=== PATIENT | female | born 1945 | race Caucasian/White ===

== ENCOUNTER 2017-06-16 13:33 | Inpatient (IN) | payer OTHER, MEDICARE ==
[~2017-06-16] VITALS: Ht 162.6 cm; Wt 71.2 kg
[~2017-06-16 13:33] MED LIST: CITALOPRAM HBR10 MG PO; HYDROCHLOROTHIA25 M1 PO; METOPROLOL SUCC25 M1 PO; METOPROLOL SUCC50 M2 PO; walker
--- NOTE | 2017-06-16 13:56 | ED NECK/BACK PAIN COMPLAINT ---
History of Present Illness General Chief Complaint: Low Back Pain/Injury Stated Complaint: LOW BACK PAIN, SEEN AND DC THS OTHER SAME FOR SAME Source: patient, old records, EMS Exam Limitations: no limitations Vital Signs & Intake/Output Vital Signs & Intake/Output Vital Signs Date Time Temp Pulse Resp B/P B/P Pulse O2 O2 Flow FiO2 Mean Ox Delivery Rate 06/16 1758 98.2 76 18 164/62 98 Room Air 06/16 1407 98.6 82 18 164/73 95 Room Air 06/16 1347 98.0 16 202/78 Allergies Coded Allergies: Penicillins (HIVES 06/13/17) Reconcile Medications Citalopram Hydrobromide (Citalopram HBr) 10 MG TABLET 1 TAB PO DAILY DEPESSION (Reported) Hydrochlorothiazide 25 MG TABLET 1 TAB PO DAILY HTN (Reported) Metoprolol Succinate 50 MG TAB.ER.24H 1 TAB PO DAILY HTN (Reported) Metoprolol Succinate 25 MG TAB 1 TAB PO DAILY HTN (Reported) Triage Note: 71 YO FEMALE ALTAF FROM HOME. PT SUSTAINED A FALL A COUPLE DAYS AGO AND WAS SEEN AT [facility] AND HAD XRAYS AND WAS D/C HOME. PT STATES HER LOW BACK HAS BEEN GETTING PROGRESSIVLEY WORSE. NOTED WITH BRUSING TO R ELBOW, STATES BRUISE WAS FROM THE PREVIOUS FALL. PT ALSO C/O PAIN TO R LEG AND BOTTOCKS. PT RECIEVED 75 MCG FENTANYL EN ROUTE TO ER BY [facility]. Triage Nurses Notes Reviewed? yes Onset: Gradual Duration: day(s): Timing: recent history Quality/Severity: severe Context: fall/near fall Method of Injury: fall Loss of Consciousness: no loss of consciousness Modifying Factors: movement HPI: 71yo female with hx of HTN BIBA c/o back pain, bilateral hip pain worsening this morning. Patient was seen and evaluated here in the ED on 06/12/17 after a fall at home. Patient had normal x-rays at, she was seen and evaluated by physical therapy, she was walking with a walker and was sent home with home health aide including visiting RN and PT. Patient states that she is been managing well at home, walking with a walker the past few days however this morning she had severe pain in her back and hips. Patient was unable to walk or move due to this pain and had to call for an ambulance. Patient medicated with 75 mcg fentanyl in route to the hospital for her pain, she reports improvement in pain following this medication. Patient denies urinary incontinence, urinary density , numbness, tingling, abdominal pain, chest pain, dyspnea. (Criss Slaughter) Past History Travel History Traveled to [place] past 21 day No Medical History Any Pertinent Medical History? see below for history Neurological: NONE EENT: NONE Cardiovascular: hypertension Respiratory: NONE Gastrointestinal: NONE Hepatic: NONE Renal: NONE Musculoskeletal: NONE Psychiatric: depression Endocrine: NONE Blood Disorders: NONE Cancer(s): NONE ADMISSIONS COUNSELOR/Reproductive: NONE Surgical History Surgical History: non-contributory Psychosocial History What is your primary language B[place]an Tobacco Use: Never used Family History Hx Contributory? No (Criss Slaughter) Review of Systems Review of Systems Constitutional: Reports: no symptoms. Eyes: Reports: no symptoms. Ears, Nose, Throat, Mouth: Reports: no symptoms. Respiratory: Reports: no symptoms. Cardiovascular: Reports: no symptoms. Gastrointestinal/Abdominal: Reports: no symptoms. Musculoskeletal: Reports: see HPI. Skin: Reports: no symptoms. Neurological/Psychological: Reports: no symptoms. All Other Systems: Reviewed and Negative (Criss Slaughter) Physical Exam Physical Exam General Appearance: well developed/nourished, no apparent distress, alert, awake Head: atraumatic, normal appearance Eyes: Bilateral: normal appearance. Ears, Nose, Throat, Mouth: hearing grossly normal Neck: normal inspection, supple, full range of motion, no midline tenderness Respiratory: normal breath sounds, no respiratory distress, lungs clear Cardiovascular: regular rate/rhythm Gastrointestinal: normal bowel sounds, soft, non-tender, no organomegaly Back: normal inspection, normal range of motion, no vertebral tenderness, no step offs Extremities: non-tender, normal range of motion, hips are nontender, limited ROM at hips bilaterally d/t pain Neurologic/Psych: awake, alert, oriented x 3 Skin: intact, normal color, warm/dry Core Measures CVA/TIA Diagnosis: No (Criss Slaughter) Progress Differential Diagnosis: aortic dissection, C spine injury, cauda equina syn, herniated disc, myofascial strain, sciatica, spinal cord inj, T/L spine injury, pelvis injury Plan of Care: Orders Procedure Date/time Status Heart Healthy Diet 06/17 B Active Patient Data 01/01 1848 Active ED Holding Orders 06/16 1834 Active Admit to inpatient 06/16 1834 Active Vital Signs 06/16 1834 Active Code Status 06/16 1834 Active COMPREHENSIVE METABOLIC PANEL 06/16 171 Complete CBC WITHOUT DIFFERENTIAL 06/16 1715 Complete Laboratory Tests 06/16/17 1726: Anion Gap 13, Estimated GFR > 60, BUN/Creatinine Ratio 36.0 H, Glucose 116 H, Calcium 9.3, Total Bilirubin 2.1 H, AST 27, ALT 30, Alkaline Phosphatase 53, Total Protein 7.1, Albumin 3.9, Globulin 3.2, Albumin/Globulin Ratio 1.2, CBC w Diff NO MAN DIFF REQ, RBC 4.78, MCV 94.4, MCH 32.4 H, RDW 13.3, MPV 9.1, Gran % 79.3 H, Lymphocytes % 9.6 L, Monocytes % 9.9 H, Eosinophils % 0.8, Basophils % 0.4, Absolute Granulocytes 8.8 H, Absolute Lymphocytes 1.1 L, Absolute Monocytes 1.1 H, Absolute Eosinophils 0.1, Absolute Basophils 0, PUBS MCHC 34.[address] Pinon REGARDING this patient's CAT scan findings - fractures are nonsurgical, patient will need repeat pelvic x-rays here in the office or in rehabilitation to assess for healing. Given patient's pain level agent would be a good candidate for rehabilitation. Not unusual to have worsening pain days later. Discussed possibility of rehabilitation with this patient, she feels unsafe going home and would like to go to rehabilitation for more assistance and physical therapy. The patient was discussed with No from case management, patient requires 3 night stay based on her insurance. This patient was discussed with hospitalist, ,regarding her general medicine admission for multiple fractures and rehabilitation placement. Diagnostic Imaging: Viewed by Me: CT Scan. Discussed w/RAD: CT Scan. Radiology Impression: PATIENT: ODALYS GOMEZ PRESENT AGE: 71 PATIENT ACCOUNT NO: [id number] : 46 LOCATION: [facility] ORDERING PHYSICIAN: Criss LAMA SERVICE DATE: 06/16/17-6166 EXAM TYPE: CAT - CT PELVIS WO IV CONTRAST EXAMINATION: CT PELVIS WITHOUT CONTRAST CLINICAL INFORMATION: Low back and bilateral hip pain status post fall. Evaluate for fracture, malalignment, hip fracture. COMPARISON: None. TECHNIQUE: Helical scanning was performed with submillimeter collimation through the pelvis. Sagittal and coronal multiplanar 2-D reconstructions were obtained. DLP: 859.60 mGy-cm FINDINGS: PELVIS: There is no pelvic mass. OSSEOUS STRUCTURES: There is a minimally distracted fracture of the left L5 transverse process. There is a nondisplaced left sacral fracture. Buckling of the anterior cortex of the right sacrum raises the possibility of a subtle fracture as well. There is a nondisplaced, mildly comminuted fracture of the left proximal superior ischiopubic ramus. There is a comminuted, mildly displaced fracture of the left inferior ischiopubic ramus. There is a sideplate, multiple screws, and a transcervical compression hip screw transfixing the right proximal femur. There is moderate hypertrophic change. No fractures identified. There are mild degenerative changes of the left hip with no fracture identified. IMPRESSION: 1. Minimally distracted fracture of the left L5 transverse process. Nondisplaced left sacral fracture. Possible subtle fracture of the right anterior sacrum. Nondisplaced, mildly comminuted fracture of the left superior ischiopubic ramus. Comminuted, mildly displaced fracture of the left inferior ischiopubic ramus. 2. No evidence of hip fracture. DICTATED BY: Malcolm Dickerson MD DATE/TIME DICTATED :06/16/171540 CV TECH:SAM DATE/TIME TRANSCRIBED:06/16/171540 CONFIDENTIAL, DO NOT COPY WITHOUT APPROPRIATE AUTHORIZATION. < Electronically signed in Other Vendor System> SIGNED BY: Malcolm Dickerson MD 06/16/17 1623, PATIENT: ODALYS GOMEZ PRESENT AGE: 71 PATIENT ACCOUNT NO: [id number] : 46 LOCATION: [facility] ORDERING PHYSICIAN: Criss LAMA SERVICE DATE: 06/16/173 EXAM TYPE: CAT - CT LUMB SPINE WO IV CONTRAST EXAMINATION: CT LUMBAR SPINE WITHOUT CONTRAST CLINICAL INFORMATION: Fall few days ago. COMPARISON: Concurrently performed pelvic CT and pelvic radiograph 06/12/2017. TECHNIQUE: Helical non-contrast CT images were obtained through the lumbar spine and 1.25 and 2.5 mm axial reconstructions were reviewed along with sagittal and coronal MPRs. DLP: 480 mGy -cm FINDINGS: There is a mildly displaced comminuted fracture through the left L5 transverse process. No other lumbar spine fracture is seen. There are minimally displaced fractures through the left and right sacral ala. The lumbar vertebral bodies maintain normal heights and alignment. No compression fracture is seen. There is intervertebral disc height loss at L3-L4 and L4-L5. There is multilevel degenerative endplate spurring. Facet arthropathy is present at multiple levels but appears most advanced at L4-L5 and L5-S1. No moderate or severe spinal canal or neural foraminal stenosis is seen. There are atheromatous changes in the abdominal aorta and its branches. The visualized intra-abdominal and pelvic structures are within normal limits. No retroperitoneal hematoma is seen. IMPRESSION: 1. Mildly displaced fracture through the left L5 transverse process. No other lumbar spine fracture is seen. Specifically, there is no compression fracture or traumatic malalignment. 2. Partially visualized fractures through the left and right sacral ala. See concurrently performed pelvic CT for further discussion of pelvic fractures including the left superior and inferior pubic rami and fracture involving the left acetabulum. 3. Multilevel degenerative changes in the lumbar spine without significant spinal canal or neural foraminal stenosis. This critical result was discussed with Juliette Brooks at 3:42 PM on 06/16/2017 and it was ascertained that the content and urgency of the report was understood at the time of direct communication. DICTATED BY: Felton Barber MD DATE/TIME DICTATED:06/16/171527 CV TECH:SAM DATE/TIME TRANSCRIBED:06/16/171527 CONFIDENTIAL, DO NOT COPY WITHOUT APPROPRIATE AUTHORIZATION. <Electronically signed in Other Vendor System> SIGNED BY: Felton Barber MD 06/16/17 1601 (Cecilia LAMA,Criss Segovia) Departure Departure Disposition: STILL A PATIENT Condition: Stable Clinical Impression Primary Impression: Fracture of transverse process of lumbar vertebra Qualifiers: Encounter type: subsequent encounter Fracture type: closed Secondary Impressions: Pubic ramus fracture Qualifiers: Encounter type: subsequent encounter Fracture type: closed Laterality: left Sacral fracture, closed Qualifiers: Encounter type: subsequent encounter Zone of sacrum fracture: unspecified portion of sacrum Referrals: Yasmin GORMAN,Bo Conrad (PCP/Family) Departure Forms: Customer Survey General Discharge Information Admission Note Spoke With: Josue MD,Sitalakshmi Documentation of Exam: Documentation of any treatments & extenuating circumstances including Concerns Regarding Discharge (functional status, medication knowledge or non-compliance, living conditions, etc.) that warrant an admission rather than observation: [ Patient with multiple fractures including transverse fracture of lumbar spine, sacral fractures, pubic rami fractures. This patient is in significant pain, requires pain management, physical therapy consult, case management consult, rehabilitation placement. Patient is unable to carry out ADLs at home, premature discharge would be unsafe.] (Cecilia LAMA,Criss Segovia) PA/BARREL LATHE OPERATOR Co-Sign Statement Statement: ED Attending supervision documentation- [X] I saw and evaluated the patient. I have also reviewed all the pertinent lab results and diagnostic results. I agree with the findings and the plan of care as documented in the PA's/BARREL LATHE OPERATOR's documentation. [X] I have reviewed the ED Record and agree with the PA's/BARREL LATHE OPERATOR's documentation. [] Additions or exceptions (if any) to the PAs/BARREL LATHE OPERATOR's note and plan are summarized below: [ADMIT FOR PAIN CONTROL, PT EVAL AND TREATMENT AND MOST LIKELY STR.] (Kathy GORMAN,Rakesh Mendiola)
--- NOTE | 2017-06-16 16:04 | CT SCAN REPORT ---
EXAMINATION: CT LUMBAR SPINE WITHOUT CONTRAST CLINICAL INFORMATION: Fall few days ago. COMPARISON: Concurrently performed pelvic CT and pelvic radiograph 06/12/2017. TECHNIQUE: Helical non-contrast CT images were obtained through the lumbar spine and 1.25 and 2.5 mm axial reconstructions were reviewed along with sagittal and coronal MPRs. DLP: 480 mGy-cm FINDINGS: There is a mildly displaced comminuted fracture through the left L5 transverse process. No other lumbar spine fracture is seen. There are minimally displaced fractures through the left and right sacral ala. The lumbar vertebral bodies maintain normal heights and alignment. No compression fracture is seen. There is intervertebral disc height loss at L3-L4 and L4-L5. There is multilevel degenerative endplate spurring. Facet arthropathy is present at multiple levels but appears most advanced at L4-L5 and L5-S1. No moderate or severe spinal canal or neural foraminal stenosis is seen. There are atheromatous changes in the abdominal aorta and its branches. The visualized intra-abdominal and pelvic structures are within normal limits. No retroperitoneal hematoma is seen. IMPRESSION: 1. Mildly displaced fracture through the left L5 transverse process. No other lumbar spine fracture is seen. Specifically, there is no compression fracture or traumatic malalignment. 2. Partially visualized fractures through the left and right sacral ala. See concurrently performed pelvic CT for further discussion of pelvic fractures including the left superior and inferior pubic rami and fracture involving the left acetabulum. 3. Multilevel degenerative changes in the lumbar spine without significant spinal canal or neural foraminal stenosis. This critical result was discussed with Juliette Brooks at 3:42 PM on 06/16/2017 and it was ascertained that the content and urgency of the report was understood at the time of direct communication.
--- NOTE | 2017-06-16 16:23 | CT SCAN REPORT ---
EXAMINATION: CT PELVIS WITHOUT CONTRAST CLINICAL INFORMATION: Low back and bilateral hip pain status post fall. Evaluate for fracture, malalignment, hip fracture. COMPARISON: None. TECHNIQUE: Helical scanning was performed with submillimeter collimation through the pelvis. Sagittal and coronal multiplanar 2-D reconstructions were obtained. DLP: 859.60 mGy-cm FINDINGS: PELVIS: There is no pelvic mass. OSSEOUS STRUCTURES: There is a minimally distracted fracture of the left L5 transverse process. There is a nondisplaced left sacral fracture. Buckling of the anterior cortex of the right sacrum raises the possibility of a subtle fracture as well. There is a nondisplaced, mildly comminuted fracture of the left proximal superior ischiopubic ramus. There is a comminuted, mildly displaced fracture of the left inferior ischiopubic ramus. There is a sideplate, multiple screws, and a transcervical compression hip screw transfixing the right proximal femur. There is moderate hypertrophic change. No fractures identified. There are mild degenerative changes of the left hip with no fracture identified. IMPRESSION: 1. Minimally distracted fracture of the left L5 transverse process. Nondisplaced left sacral fracture. Possible subtle fracture of the right anterior sacrum. Nondisplaced, mildly comminuted fracture of the left superior ischiopubic ramus. Comminuted, mildly displaced fracture of the left inferior ischiopubic ramus. 2. No evidence of hip fracture.
[2017-06-16 17:46] LABS: ABSOLUTE BASOPHIL COUNT 0 /CUMM (0.0-0.2); ABSOLUTE EOSINOPHIL COUNT 0.1 /CUMM (0.0-0.7); ABSOLUTE GRANULOCYTE CT 8.8 /CUMM (1.4-6.5); ABSOLUTE LYMPH COUNT 1.1 /CUMM (1.2-3.4); ABSOLUTE MONOCYTE COUNT 1.1 /CUMM (0.10-0.60); BASOPHIL % 0.4 % (0.0-2.0); EOSINOPHIL % 0.8 % (0-5); GRANULOCYTE % 79.3 % (42.2-75.2); HEMATOCRIT 45.1 % (37-47); MEAN CORPUSCULAR HGB 32.4 PG (27.0-31.0); MEAN CORPUSCULAR HGB CONC 34.4 G/DL (33.0-37.0); MEAN CORPUSCULAR VOLUME 94.4 FL (81.0-99.0); MEAN PLATELET VOLUME 9.1 FL (7.4-10.4); PLATELET COUNT 206 /CUMM (130-400); RBC DISTRIBUTION WIDTH 13.3 % (11.5-14.5); RED BLOOD CELL CT 4.78 /CUMM (4.20-5.40); WHITE BLOOD CELL COUNT 11.1 /CUMM (4.8-10.8)
--- NOTE | 2017-06-16 20:00 | History & Physical ---
Martha Narayan MD 06/16/171958: General Information and [facility] MD Statement: I have seen and personally examined ODALYS VALENTIN and documented this H&P. The patient is a 71 year old F who presented with a patient stated chief complaint of [right leg pain]. Source of Information: patient Exam Limitations: no limitations History of Present Illness: This is a 71-year-old female with past medical history of hypertension, depression came to [place] [facility] with history of pain and difficulty upon walking more on the right side compared to left. Apparently patient had a fall 3 days [ under the influence of alcohol, patient was lying in her couch and rolled on the floor with no episode of loss of consciousness/accident/seizures] ago and came to [place] ER-evaluated with x-r and found to have no fracture. She was sent back home with follow-up with her primary care physician. Patient since then was using walker at home. Patient was apparently normal until yesterday, following which she started developing severe 10 x 10 constant excruciating pain in her lower back, buttock, right leg more than the left leg since today morning. Patient was able to ambulate with the help of the walker but with pain. She was brought to [facility] for further evaluation and management. She denies chest pain, chest pressure, alcohol use in the past 3 days, abdominal pain, abdominal cramps, left arm pain, jaw pain, palpitation hematuria, dysuria, constipation, diarrhea, fever, chills, nausea, vomiting, loss of consciousness, seizures, blackouts, ringing of year, headache. Pt feels depressed and embarressed about her recent alcohol use and fall due to the same. She also feels unsafe being at home alone as her son who lives upstairs goes to job from tomorrow. Allergies/Medications Allergies: Coded Allergies: Penicillins (HIVES 06/13/17) Home Med list Citalopram Hydrobromide (Citalopram HBr) 10 MG TABLET 1 TAB PO DAILY DEPESSION (Reported) Hydrochlorothiazide 25 MG TABLET 1 TAB PO DAILY HTN (Reported) Metoprolol Succinate 50 MG TAB.ER.24H 1 TAB PO DAILY HTN (Reported) Compliance With Home Meds: GOOD Past History Travel History Traveled to [place] past 21 day No Medical History Neurological: NONE EENT: NONE Cardiovascular: hypertension Respiratory: NONE Gastrointestinal: NONE Hepatic: NONE Renal: NONE Musculoskeletal: NONE Psychiatric: depression Endocrine: NONE Blood Disorders: NONE Cancer(s): NONE DIRECTOR OF PAYROLL/Reproductive: NONE Surgical History Surgical History: fracture right femur Past Family/Social History Family History Relations & Conditions if any FATHER Relation not specified for: FHx: lung cancer Psychosocial History Where do you live? Home Who Do You Live With? spouse Services at Home: None Primary Language: Icelandic Smoking Status: Never Smoked ETOH Use: heavy use Illicit Drug Use: denies illicit drug use Functional Ability ADLs Independent: dressing, eating, toileting, bathing. Ambulation: walker IADLs Independent: shopping, housework, finances, food prep, telephone, transportation , medication admin. Review of Systems Review of Systems Constitutional: Reports: no symptoms. Cardiovascular: Denies: no symptoms. Respiratory: Denies: no symptoms. GI: Reports: no symptoms. Genitourinary: Reports: no symptoms. Neurological/Psychological: Reports: no symptoms. Hematologic/Endocrine: Reports: no symptoms. Exam & Diagnostic Data Last 24 Hrs of Vital Signs/I&O Vital Signs Date Time Temp Pulse Resp B/P B/P Pulse O2 O2 Flow FiO2 Mean Ox Delivery Rate 06/16 2200 98.9 78 18 142/62 06/16 2100 98.9 78 18 142/62 95 Room Air 06/16 1938 98.3 78 18 167/72 97 Room Air Room Air 06/16 1758 98.2 76 18 164/62 98 Room Air 06/16 1407 98.6 82 18 164/73 95 Room Air 06/16 1347 98.0 16 202/78 Intake & Output 06/17 0800 06/17 0000 06/16 1600 Intake Total 240 0 Output Total 0 Balance 240 0 Intake, Oral 240 0 Number 0 Bowel Movements Output, Urine 0 Patient 157 lb 157 lb Weight Weight Reported by Patient Reported by Patient Measurement Method Physical Exam General Appearance Alert, Oriented X3, Cooperative, No Acute Distress Skin No Rashes, No Breakdown HEENT Atraumatic, PERRLA Cardiovascular Regular Rate, Normal S1, Normal S2, No Murmurs Lungs Clear to Auscultation Abdomen Normal Bowel Sounds, Soft, No Tenderness Neurological Normal Speech, Strength at 5/5 X4 Ext, Normal Tone, Sensation Intact Extremities No Edema, no point tenderness,restricted hip extension b/l Vascular Normal Pulses Last 24 Hrs of Labs/Ayden: Laboratory Tests 06/16/17 1726: Anion Gap 13, Estimated GFR > 60, BUN/Creatinine Ratio 36.0 H, Glucose 116 H, Calcium 9.3, Total Bilirubin 2.1 H, Direct Bilirubin 0.7 H, AST 27, ALT 30, Alkaline Phosphatase 53, Total Protein 7.1, Albumin 3.9, Globulin 3.2, Albumin/ Globulin Ratio 1.2, Vitamin B12 329, 25-OH Vitamin D Total 5.0 L, CBC w Diff NO MAN DIFF REQ, RBC 4.78, MCV 94.4, MCH 32.4 H, RDW 13.3, MPV 9.1, Gran % 79.3 H , Lymphocytes % 9.6 L, Monocytes % 9.9 H, Eosinophils % 0.8, Basophils % 0.4, Absolute Granulocytes 8.8 H, Absolute Lymphocytes 1.1 L, Absolute Monocytes 1.1 H, Absolute Eosinophils 0.1, Absolute Basophils 0, PUBS MCHC 34.4 Diagnostic Data EKG Results normal axis,SR ,[id number] Other Results lumbar spine CT IMPRESSION: 1. Mildly displaced fracture through the left L5 transverse process. No other lumbar spine fracture is seen. Specifically, there is no compression fracture or traumatic malalignment. pelvis CT 1. Minimally distracted fracture of the left L5 transverse process. Nondisplaced left sacral fracture. Possible subtle fracture of the right anterior sacrum. Nondisplaced, mildly comminuted fracture of the left superior ischiopubic ramus. Comminuted, mildly displaced fracture of the left inferior ischiopubic ramus. 2. No evidence of hip fracture. 2. Partially visualized fractures through the left and right sacral ala. Assessment/Plan Assessment: This is a 71-year-old female with past medical history of hypertension, depression came to [place] [facility] with history of pain and difficulty upon walking more on the right side compared to left, Found to have minimally distracted fracture of left L5 transverse process, subtle fracture of right anterior sacrum , mildly comminuted fracture of the left superior ischiopubic Ramus, mildly displaced fracture of the left inferior ischiopubic Ramus. Admission vitals Blood pressure 202/78 came down to 142/62, temperature 98.3, pulse rate 78, respiratory rate 18, saturation 97. Admission labs WBC 11.1, hemoglobin 15.5, sodium 141, potassium 3.8, BUN/creatinine 18, calcium 9.3, creatinine 0.5, total bilirubin 2.1. Problem list 1. Lumbar L5 fracture, Left superior and inferior is ischio pubic ramus fracture, fracture of right anterior sacrum. 2. Hypertension 3. Depression 4. Vit D deficiency 5. Excessive alcohol intake Assessment and plan 1. Lumbar L5 fracture, Left superior and inferior is ischio pubic ramus fracture, fracture of right anterior sacrum-patient will be managed conservatively. We will get a PT OT consult in a.m. We will discuss with case management regarding placement to STR. Pain management-morphine, oxycodone, lidocaine 5% patch, Tylenol. 2.Hypertension We will continue her metoprolol 50 mg daily hydrochlorthiazide 25 mg daily. 3. Depression We will continue her citalopram 10 mg daily. Patient would like to talk to psychiatry. We will get a psychiatry consult in a.m. 4. Excessive alcohol intake We will send urine and serum alcohol level.[facility] protocol. 5. Vit D Pt Vit D is low 5[place] [id number] weekly vit D injection and do bone scan as out pt. Code-full code Diet-regular diet DVT prophylaxis-subcutaneous heparin. As Ranked By This Provider Problem List: 1. Fracture of transverse process of lumbar vertebra Qualifiers Encounter type: subsequent encounter Fracture type: closed 2. Pubic ramus fracture Qualifiers Encounter type: subsequent encounter Fracture type: closed Laterality: left 3. Sacral fracture, closed Qualifiers Encounter type: subsequent encounter Zone of sacrum fracture: unspecified portion of sacrum Core Measures/Misc (03/02) Acute Coronary Syndrome ACS Diagnosis: No Congestive Heart Failure Congestive Heart Failure Diagnosis No Cerebrovascular Accident CVA/TIA Diagnosis: No VTE (View Protocol) VTE Risk Factors Age>40 No Mechanical VTE Prophylaxis d/t Other No VTE Pharm Prophylaxis d/t Other Sepsis (View protocol) Sepsis Present: No Varinder Pedroza 06/17/17 0304: Resident Review Statement Resident Statement: examined this patient, discussed with international manager, agreed with international manager, reviewed images, amended to note Other Findings: Ms Valentin is a 71 year old woman w/ a PMHx HTN, Depression presented to the [place] ER w/ a chief concern of inability to get out of her bed. She was evalated in the ED on 05/14/17, when she had a mechanical fall after she tripped when she was getting out of her couch. She was intoxicated at that time, and had a several x rays including L elbow, pelvis, chest that did not reveal any acute fractures at that time. She was discharged home, and did not have any further falls. She returned to the ER w/ a cheif concern of inability to get out of her bed due to sever pain in her hip region radiating to the back of the legs. She did not have any fever, urinary or bowel incontinence. No report of neurological weakness, paresthesias, or any discoloration of lower extremities. She was very concerned about her worsening pain, and also her living condition especially with her daily chores including food preparation. Also, upon questioning she reported frequent alcohol use, 2-3 glasses of wine almost every day. Last drink 4 days ago. She reports no history of alcohol withdrawl seizures, DTs. She also reported feeling a little low in mood, secondary to being in pain, but did not have any SI/HI. She did not have any previous bone density scanning done, nor was tx'ed w/ vitamin D or calcium supplementations. No recent or medical terminologist corticosteroid use. At the time of admission, vitals temp 98, DE 82, RR 18, BP 164/73, 95 RA. On examination, she was comfortably lying in her bed, but she was in a lot of pain, when examined. She had tenderness in her lower back, and right femur region. She had bruise in right elbow joint region, but no joint tenderness. No knee or ankle tenderness. Neurological examinatoin was non focal. Gait could not be checked. Heart and lung exam was normal. Pertinent lab findings: WBC 11.1, Hb 15.1, platelets 206, electrolytes-sodium 141, potassium 3.8, renal function BUN 18, creatinine 0.5, total bilirubin 2.1, direct bilirubin 0.7 (likely a conjugating defect), liver chemistries-AST 27, ALT 30, alkaline phosphatase 53. CT pelvis and lumbar spine revealed mildly displaced fracture through left L5 transverse process. No compression fracture was noted. Also fractures of nondisplaced left sacral fracture, fracture of right anterior sacrum, nondisplaced mildly comminuted fracture of left superior ischiopubic ramus, and inferior ischiopubic ramus. No evidence of a fracture. Fall resulting in fracture of sacrum, that is less than standing length is likely from osteoporosis, but a bone density evaluation or a diagnosis is not available at this time. She has low vitamin D, and a possible nutritional deficiency from chronic alcohol use, which would put her at a risk of frequent fractures. She would need a dedicated rehabilitation program, and a follow-up with primary care physician to evaluate bone health, if she would need any bisphosphonates. In regards to her abnormal lab findings, slightly elevated indirect bilirubin is likely from her ? Conjugating defect or biliary stasis. This could be followed up over time, until normalization. Plan: #1 multiple falls resulting in fracture- she would need a dedicated STIR with physical therapy. As per the orthopedic recommendation (discussed with emergency room physician), management plan is largely conservative. She would require follow-up x-rays for evaluation of healing in the future. Fall precautions. Check vitamin B-12, if low will replenish; if borderline check MMA. #2 pain management-with Lidoderm patch, oxycodone, intravenous morphine. Hold for sedation. Bowel regimen. #3 mental health, social issues- she would need a psychiatry evaluation, and a social work evaluation, as she expressed issues of security at home. Housekeeping: #1 DVT prophylaxis-subcutaneous heparin #2 diet-heart healthy diet #3 Full code. Josue GORMAN, [facility] 06/17/17 0315: Attending MD Review Statement Attending Statement Attending MD Statement: examined this patient, discuss w/resident/PA/HOSPICE/HOME HEALTH AIDE, agreed w/resident/PA/HOSPICE/HOME HEALTH AIDE, reviewed images, amended to note Attending Assessment/Plan: 71 yo F with h/o HTN, depression and alcohol use, was seen in ER on Jun 12 after suffering 2 falls at home under the influence of alcohol, imaging was negative for any fracture, patient was sent home with a rolling walker with PT services after being evaluated by PT and case management. She returns today for c/o back pain and bilateral hip pain that limiting her mobility. She called 911, was given fentanyl enroute with some relief. At baseline, she walks independently without a walker or cane. About her alcohol use, she reports drinking 2 glasses of wine every other day, but is not really dependent on it and has never needed to be detoxed. She lives alone, while her son lives with his girlfriend upstairs. She seems to be depressed and reports 'feeling unsafe' as her son has starts to work again. She is also embarrassed about her recent alcohol use. She states, 'I feel safe here'. Vitals are stable except for hypertension on ER arrival which was possibly pain induced, BP 142/62 now. Exam: AAO, in mild distress due to pain, limited neuro exam appears nonfocal, bilateral hips limited ROM due to pain. Left elbow skin tear healing with diffuse ecchymosis, no limitation in ROM. Labs: WBC 11.1, BUN 18, glucose 116, T. Bili 2.1, AST/ ALT normal, alcohol <10. CT lumbar spine: mildly displaced fracture left L5 transverse process, no compression fracture. CT pelvis: minimally distracted fracture of left L5 transverse process, nondisplaced left sacral fracture, possible subtle fracture of right anterior sacrum, nondisplaced, mildly comminuted fracture of left superior ischiopubic ramus, comminuted mildly displaced fraccture of left inferior ischiopubic ramus, no hip fracture. Assessment and plan: 1. Recent mechanical fall 2. Multiple pelvic fractures with left L5 transverse fracture 3. Gait instability 4. Depression - Admit to general medicine - Fall precautions - CIWA protocol - Pain management with lidoderm patch, IV tylenol, PO percocet and IV morphine PRN - Ortho consult ER discussed with Dr. Pinon, fractures are nonsurgical - Check vit D and B12 levels - PT eval and STR placement - Case management consult - Psych and social work consult assess safety - Continue home meds citalopram, metoprolol and HCTZ DVT ppx Lovenox. Full code. - PT eval and STR placement - Case management consult - Psych and social work consult assess safety - Continue home meds citalopram, metoprolol and HCTZ DVT ppx Lovenox. Full code.
--- NOTE | 2017-06-16 20:56 | Admission Certification ---
Admission Certification Certification Statement - As attending physician, I certify that at the time of - admission, based on clinical presentation, severity of - symptoms, need for further diagnostic testing and - therapeutic interventions, and risk of adverse outcomes - without in-hospital treatment, in my clinical assessment, - this patient requires an acute hospital stay for a minimum - of two nights or longer. I have also considered psychsocial - factors such as support system, advanced age, financial - issues, cognitive issues, and failed out-patient treatments, - past re-admission history, safety of patient, and lack of - compliance as applicable. Specific rationale supporting this admission is: Fall, pelvic fracture, needs pain management, PT and STR.
[2017-06-16 21:00] VITALS: BP 142/62
[2017-06-16 22:00] VITALS: BP 142/62
[2017-06-17] VITALS (11 sets, daily range): BP systolic 142–190; BP diastolic 62–76
--- NOTE | 2017-06-17 09:11 | PN- Housestaff ---
Kareen GORMAN,Bri 06/17/17 0911: Subjective Follow-up For: 1. Lumbar L5 fracture, Left superior and inferior is ischio pubic ramus fracture, fracture of right anterior sacrum. 2. Hypertension 3. Depression 4. Vit D deficiency 5. Excessive alcohol intake Complaints: pain scale (0-10) Subjective: Patient is seen and examined at bedside, she continues to complain of pain in her back and posterior part of her thighs 5/10 in severity which is somewhat controlled by pain meds, she also complains of depressed mood, she denies nausea vomiting, abdominal pain, chest pain, diarrhea or constipation. Review of Systems Constitutional: Denies: no symptoms. Cardiovascular: Denies: no symptoms. Respiratory: Denies: no symptoms. Gastrointestinal: Denies: no symptoms. Musculoskeletal: Reports: back pain, joint pain, muscle pain. Objective Last 24 Hrs of Vital Signs/I&O Vital Signs Date Time Temp Pulse Resp B/P B/P Pulse O2 O2 Flow FiO2 Mean Ox Delivery Rate 06/17 1000 170/72 06/17 1000 170/76 06/17 0800 190/70 06/17 0725 190/70 06/17 0602 70 178/68 06/17 0600 98.4 70 20 178/68 06/17 0530 98.4 70 20 178/68 93 Room Air 06/17 0400 98.5 80 20 172/68 06/17 0200 98.5 80 20 172/68 06/17 0128 98.5 80 20 172/68 94 / 0000 98.9 78 18 142/62 06/16 2200 98.9 78 18 142/62 06/16 2100 98.9 78 18 142/62 95 Room Air 06/16 1938 98.3 78 18 167/72 97 Room Air Room Air 06/16 1758 98.2 76 18 164/62 98 Room Air Intake & Output 06/17 1600 06/17 0800 06/17 0000 Intake Total 800 490 240 Output Total 400 0 Balance 400 490 240 Intake, IV 0 10 Intake, Oral 800 480 240 Number 0 0 0 Bowel Movements Output, Urine 400 0 Patient 157 lb Weight Weight Reported by Patient Measurement Method Physical Exam General Appearance: Alert, Oriented X3, Cooperative, No Acute Distress HEENT: Atraumatic, PERRLA, EOMI, Mucous Membr. moist/pink Neck: Supple, No JVD Cardiovascular: Normal S1, Normal S2, No Murmurs Lungs: Clear to Auscultation, Normal Air Movement Abdomen: Normal Bowel Sounds, Soft, No Tenderness Neurological: Normal Speech, Strength at 5/5 X4 Ext, Normal Tone Extremities: No Clubbing, No Cyanosis, No Edema, Normal Pulses Vascular: Normal Pulses Assessment/Plan Assessment: 79 years old female with past medical history of hypertension, depression who presented to [place] [facility] was history of pain and difficulty walking which is more noticed on the right side, CT pelvis and lumbar spines show with minimally displaced fracture of L5 transverse process, fracture of the right anterior sacrum ramus,subtle fracture of right anterior sacrum, mildly comminuted fracture of the left superior ischiopubic Ramus, mildly displaced fracture of the left inferior ischiopubic Ramus, this morning the patient was found to have hyper pressure of 190/70 which might be attributed to her pain #L5 fracture, Left superior and inferior is ischio pubic ramus fracture, fracture of right anterior sacrum: -Pain management with morphine, oxycodone, Tylenol, lidocaine patch -Oxycodone has been increased to 5 mg every 4 - ER discussed with Dr. Pinon, fractures are nonsurgical -Fall precautions -PT eval and STR placement #Depression/history of excessive alcohol use: CIWA score Continue citalopram 10 mg PO daily. refer to PCP after discharge for anxiety and possible depression #Vitamin D deficiency Patient was restarted on 50,000 vitamin D injection , will need bone scan as outpatient. Continue citalopram 10 mg PO daily. Problem List: 1. Pubic ramus fracture 2. Sacral fracture, closed 3. Fracture of transverse process of lumbar vertebra Pain Ratin Pain Location: back and buttocks Pain Goal: Pain 4 or less Pain Plan: per pathway Tomorrow's Labs & Rationales: cbc bep DVT/Prophylaxis: mechanical, pharmacological Aida Freeman MD 06/17/17 1510: Attending MD Review Statement Attending Statement Attending MD Statement: examined this patient, discuss w/resident/PA/DIRECTOR CARDIAC, agreed w/resident/PA/DIRECTOR CARDIAC, reviewed EMR data (avail) Attending Assessment/Plan: Mechanical fall with multiple pelvic and L5 transverse process fractures. Pain is improved today. Patient will be managed with pain control and physical therapy, eventual discharge to [facility], continue current management and home medications.
[2017-06-17 09:33] LABS: ABSOLUTE BASOPHIL COUNT 0.1 /CUMM (0.0-0.2); ABSOLUTE EOSINOPHIL COUNT 0.3 /CUMM (0.0-0.7); ABSOLUTE GRANULOCYTE CT 7.1 /CUMM (1.4-6.5); ABSOLUTE LYMPH COUNT 1.6 /CUMM (1.2-3.4); ABSOLUTE MONOCYTE COUNT 1.3 /CUMM (0.10-0.60); BASOPHIL % 0.5 % (0.0-2.0); EOSINOPHIL % 2.9 % (0-5); HEMATOCRIT 43.7 % (37-47); MEAN CORPUSCULAR HGB 32.4 PG (27.0-31.0); MEAN CORPUSCULAR HGB CONC 33.9 G/DL (33.0-37.0); MEAN CORPUSCULAR VOLUME 95.5 FL (81.0-99.0); MEAN PLATELET VOLUME 10.1 FL (7.4-10.4); RBC DISTRIBUTION WIDTH 13.2 % (11.5-14.5); RED BLOOD CELL CT 4.58 /CUMM (4.20-5.40)
--- NOTE | 2017-06-17 10:12 | Cons- Psychiatry ---
Psychiatric Consult Date of Consult: 06/17/17 Reason for Consult: "multiple falls, depression, alcohol use." History of Present Illness: 71 F ALTAF from home 06/16/17 @ 1347 with CC pain and bruising 2/2 falls. Allergies: Coded Allergies: Penicillins (HIVES 06/13/17) Current Medications: Current Medications Sig/Farooq Start time Last Medication Dose Stop Time Status Admin Acetaminophen 650 MG Q6PRN PRN 06/16 2045 AC (Tylenol) Citalopram 10 MG DAILY 06/17 1000 AC 06/17 Hydrobromide 0816 (Celexa) Docusate Sodium 100 MG DAILY 06/17 1000 AC 06/17 (Colace) 0815 Ergocalciferol 50,000 IU QTUES 06/17 0700 AC 06/17 (Drisdol) 08/05 0701 0539 Heparin Sodium 5,000 UNIT Q8 06/16 2200 AC 06/17 (Porcine) 0519 Hydrochlorothiazide 25 MG DAILY 06/17 1000 AC 06/17 (Hydrodiuril) 0815 Lidocaine 1 PAT Q24H 06/16 2045 AC 06/16 (Lidoderm) 2225 Metoprolol Tartrate 25 MG BID 06/17 2200 AC (Lopressor) Morphine Sulfate 2 MG Q6P PRN 06/16 2200 AC 06/17 (Morphine) 0519 Oxycodone HCl 5 MG Q4 HRS NEEDED PRN 06/17 0830 AC (Roxicodone) Polyethylene Glycol 17 GM AT BEDTIME 06/16 2200 AC (Miralax) Past History Past Medical History Neurological: NONE EENT: CATARACT SX Cardiovascular: hypertension Respiratory: NONE Gastrointestinal: NONE Hepatic: NONE Renal: NONE Musculoskeletal: FEMUR FRACTURE 1999 Psychiatric: depression Endocrine: NONE Blood Disorders: NONE Cancer(s): NONE 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 Bo Hoffman. Reason for Treatment Anxiety Dates of Treatment Current Response to Treatment Improved, per patient Diagnosis: Mood d/o NOS Alcohol use d/o Risk Factors: age (under 24/over 65) Substance Use/Abuse History Drug Use/Abuse Substances Used/Abused Yes Substance Used/Abused Alcohol First Use Not evaluated Last Used 07/14/26 How much used/taken 2-3 glasses of wine How often daily For how long fci Substance Abuse Treatment Substance Abuse Treatment Past Substance Abuse [place] No Comments: The patient reports that she does not feel she has a problem with alcohol. Assessment/Plan Mental Status Orientation: Person, Place, Situation Affect: Constricted Speech: WNL Neuro-vegetative: WNL Mental Status Exam: A+O X 4; denies AH or VH, and presents no mc delusions; Denies SI, HI or history of suicide attempts. She reports current depression 6-12/23, 03/25 worst, related to her embarrassment of being hospitalized for falls 2/2 her alcohol use. Denies hopelessness, helplessness; "Sometimes a little" worthlessness and endorses feelings of guilt 2/2 her feeling responsible for her sons drug addiction. She feels that after her divorce when her son was a child, she feels she made a choice to have a social life, and that she neglected her son, leading to his drug addiction. Lab Results: Laboratory Tests 06/17 06/17 06/16 0730 0730 1726 Chemistry Sodium (137 - 145 mmol/L) 139 141 Potassium (3.5 - 5.1 mmol/L) 3.7 3.8 Chloride (98 - 107 mmol/L) 102 102 Carbon Dioxide (22 - 30 mmol/L) 24 26 Anion Gap (5 - 16) 14 13 BUN (7 - 17 mg/dL) 18 H 18 H Creatinine (0.5 - 1.0 mg/dL) 0.5 0.5 Estimated GFR (>60 ml/min) > 60 > 60 BUN/Creatinine Ratio (7 - 25 %) 36.0 H 36.0 H Glucose (65 - 99 mg/dL) 116 H Calcium (8.4 - 10.2 mg/dL) 9.3 Total Bilirubin (0.2 - 1.3 mg/dL) 2.1 H Direct Bilirubin (< 0.4 mg/dL) 0.7 H AST (14 - 36 U/L) 27 ALT (9 - 52 U/L) 30 Alkaline Phosphatase (<127 U/L) 53 Total Protein (6.3 - 8.2 g/dL) 7.1 Albumin (3.5 - 5.0 g/dL) 3.9 Globulin (1.9 - 4.2 gm/dL) 3.2 Albumin/Globulin Ratio (1.1 - 2.2 %) 1.2 Vitamin B12 (239 - 931 pg/mL) 329 Methylmalonic Acid Pending 25-OH Vitamin D Total (30 - 100 ng/ml) 5.0 L Hematology CBC w Diff Pending NO MAN DIFF REQ WBC (4.8 - 10.8 /CUMM) Pending 11.1 H RBC (4.20 - 5.40 /CUMM) Pending 4.78 Hgb (12.0 - 16.0 G/DL) Pending 15.5 Hct (37 - 47 %) Pending 45.1 MCV (81.0 - 99.0 FL) Pending 94.4 MCH (27.0 - 31.0 PG) Pending 32.4 H RDW (11.5 - 14.5 %) Pending 13.3 Plt Count (130 - 400 /CUMM) Pending 206 MPV (7.4 - 10.4 FL) Pending 9.1 Gran % (42.2 - 75.2 %) Pending 79.3 H Lymphocytes % (20.5 - 51.1 %) Pending 9.6 L Monocytes % (1.7 - 9.3 %) Pending 9.9 H Eosinophils % (0 - 5 %) Pending 0.8 Basophils % (0.0 - 2.0 %) Pending 0.4 Absolute Granulocytes (1.4 - 6.5 /CUMM) Pending 8.8 H Absolute Lymphocytes (1.2 - 3.4 /CUMM) Pending 1.1 L Absolute Monocytes (0.10 - 0.60 /CUMM) Pending 1.1 H Absolute Eosinophils (0.0 - 0.7 /CUMM) Pending 0.1 Absolute Basophils (0.0 - 0.2 /CUMM) Pending 0 PUBS MCHC (33.0 - 37.0 G/DL) Pending 34.4 Toxicology Serum Alcohol (<10 MG/DL) < 10.0 Diffential Diagnosis: Mood d/o Depression Anxiety Substance-induced mood d/o Alcohol use d/o Impression: The patient reports that she drinks socially, and does not have a problem with alcohol. She also states that she has stopped drinking since her falls, which she states she has done before without withdrawal symptoms, seizure. She had positive responses to two CAGE questions, suggestive of alcohol abuse, but adamantly denies that she will be unable to stop drinking. She cites her experience with her son and his opiate addiction, now in remission, as contributing to her wake-up call. We would prefer her to come to our Intensive Outpatient Program to assist with her alcohol use cessation, but she declines an offer to come to [facility] or Outpatient Psychaitry Service. She states that she prefers to continue with her citalopram as prescribed by her PCP, which was started 2-1/2 years ago. She reports the current low dosing has helped her tremendously. She lives alone on the first floor of her home, and her son, now in recovery from opiate addiction, lives with his girlfriend on the floor above. Anxiety is 7/10 currently, and normally is well-controlled at home with medication. Family Hx includes depression in her maternal grandmother. Provisional Treatment Plan: Suggestions: 1. Continue to monitor for alcohol withdrawal symptoms, including CIWA, as indicated. 2. Continue citalopram 10 mg PO daily. 3. Refer to her PCP for followup for anxiety, possible depression and alcohol use disorder. 4. Consider starting vitamin D3, as low levels have been implicated with mood disorders. 5. Please re-consult, as needed.
[2017-06-17 10:38] LABS: PLATELET COUNT 171 /CUMM (130-400)
[2017-06-17 10:39] LABS: GRANULOCYTE % 67.9 % (42.2-75.2); WHITE BLOOD CELL COUNT 10.4 /CUMM (4.8-10.8)
[2017-06-18] VITALS (9 sets, daily range): BP systolic 140–170; BP diastolic 60–80
--- NOTE | 2017-06-18 07:16 | PN- Housestaff ---
See Addendum Subjective Follow-up For: 1. Lumbar L5 fracture, Left superior and inferior is ischio pubic ramus fracture, fracture of right anterior sacrum. 2. Hypertension 3. Depression 4. Vit D deficiency 5. Excessive alcohol intake Subjective: Patient is seen and examined at bedside, she continues to complain of pain in her back and buttocks 2/10 in severity, she mentioned that her pain is controlled with pain meds. She notes that her pain increases when she tries to move in bed. She denies any nausea vomiting, chest pain, fever, chills. She also denies any tingling, weakness or numbness in her lower extremity Review of Systems Constitutional: Denies: no symptoms. Cardiovascular: Denies: no symptoms. Respiratory: Denies: no symptoms. Gastrointestinal: Denies: no symptoms. Genitourinary: Denies: no symptoms. Musculoskeletal: Reports: see HPI. Objective Last 24 Hrs of Vital Signs/I&O Vital Signs Date Time Temp Pulse Resp B/P B/P Pulse O2 O2 Flow FiO2 Mean Ox Delivery Rate 06/18 1047 Room Air Room Air 06/18 1040 98.4 64 20 158/60 93 Room Air 06/18 0902 144/58 06/18 0638 97.8 80 20 150/80 96 Room Air 06/18 0600 97.8 80 20 150/80 06/18 0400 97.8 80 20 150/80 06/18 0226 97.8 80 20 150/80 96 Room Air 06/18 0200 97.8 78 20 154/62 /03 0000 97.8 78 20 154/62 / 2258 97.8 78 20 154/62 92 Room Air 06/17 1740 Room Air Room Air 06/17 1446 98.4 75 20 148/68 91 Room Air Intake & Output 06/18 1600 06/18 0800 06/18 0000 Intake Total 730 520 480 Output Total 500 300 Balance 730 20 180 Intake, IV 30 40 Intake, Oral 700 480 480 Number 0 0 0 Bowel Movements Output, Urine 500 300 Physical Exam General Appearance: Alert, Oriented X3, Cooperative, No Acute Distress Skin: No Rashes, No Breakdown, No Significant Lesion HEENT: Atraumatic, PERRLA, EOMI, Mucous Membr. moist/pink Neck: Supple, No JVD Cardiovascular: Normal S1, Normal S2, No Murmurs Lungs: Clear to Auscultation, Normal Air Movement Abdomen: Normal Bowel Sounds, Soft, No Tenderness Neurological: Normal Speech, Strength at 5/5 X4 Ext, Normal Tone Extremities: No Clubbing, No Cyanosis, No Edema Assessment/Plan Assessment: 79 years old female with past medical history of hypertension, depression who presented to [facility] was history of pain and difficulty walking which is more noticed on the right side, CT pelvis and lumbar spines show with minimally displaced fracture of L5 transverse process, fracture of the right anterior sacrum ramus,subtle fracture of right anterior sacrum, mildly comminuted fracture of the left superior ischiopubic Ramus, mildly displaced fracture of the left inferior ischiopubic Ramus, this morning the patient was found to have hyper pressure of 190/70 which might be attributed to her pain #L5 fracture, Left superior and inferior is ischio pubic ramus fracture, fracture of right anterior sacrum: -Pain management with morphine, oxycodone, Tylenol, lidocaine patch - ER discussed with Dr. Pinon, fractures are nonsurgical Follow-up with Dr. Etienne in 6 weeks for repeated x-ray of the pelvis as outpatient -Fall precautions -PT eval and STR placement #Depression/history of excessive alcohol use: CIWA score was 0 Continue citalopram 10 mg PO daily. refer to PCP after discharge for anxiety and possible depression #Vitamin D deficiency Patient was restarted on 50,000 vitamin D injection , will need bone scan as outpatient. Patient is full code Heart healthy diet DVT prophylaxis with subcutaneous heparin/Alps Problem List: 1. Pubic ramus fracture 2. Sacral fracture, closed 3. Fracture of transverse process of lumbar vertebra Pain Ratin Pain Location: back and buttocks Pain Goal: Pain 4 or less Pain Plan: per pathway Tomorrow's Labs & Rationales: n/a DVT/Prophylaxis: mechanical, pharmacological
[2017-06-18 08:36] LABS: ABSOLUTE BASOPHIL COUNT 0 /CUMM (0.0-0.2); ABSOLUTE EOSINOPHIL COUNT 0.2 /CUMM (0.0-0.7); ABSOLUTE GRANULOCYTE CT 5.6 /CUMM (1.4-6.5); ABSOLUTE LYMPH COUNT 1.3 /CUMM (1.2-3.4); BASOPHIL % 0.4 % (0.0-2.0); EOSINOPHIL % 2.8 % (0-5); GRANULOCYTE % 68.1 % (42.2-75.2); HEMATOCRIT 46.1 % (37-47); MEAN CORPUSCULAR HGB 32.4 PG (27.0-31.0); MEAN CORPUSCULAR HGB CONC 34.3 G/DL (33.0-37.0); MEAN CORPUSCULAR VOLUME 94.6 FL (81.0-99.0); MEAN PLATELET VOLUME 9.6 FL (7.4-10.4); PLATELET COUNT 175 /CUMM (130-400); RBC DISTRIBUTION WIDTH 12.9 % (11.5-14.5); RED BLOOD CELL CT 4.87 /CUMM (4.20-5.40); WHITE BLOOD CELL COUNT 8.2 /CUMM (4.8-10.8)
--- NOTE | 2017-06-18 10:40 | Cons- Orthopedic ---
General Information and HPI Consulting Request Date of Consult: 06/18/17 Requested By: Aida Freeman MD Reason for Consult: Low-back and pelvic pain Source of Information: patient Exam Limitations: no limitations History of Present Illness: Patient 71-year-old female who had a fall several days ago. She comes emergency room with complaints of severe low back pain and left-sided pelvic pain and lower extremity pain. Patient denies any neurologic symptoms in the lower extremities. Allergies/Medications Allergies: Coded Allergies: Penicillins (HIVES 06/13/17) Home Med List: Citalopram Hydrobromide (Citalopram HBr) 10 MG TABLET 1 TAB PO DAILY DEPESSION (Reported) Hydrochlorothiazide 25 MG TABLET 1 TAB PO DAILY HTN (Reported) Metoprolol Succinate 50 MG TAB.ER.24H 1 TAB PO DAILY HTN (Reported) Current Medications: Current Medications Sig/Farooq Start time Last Medication Dose Route Stop Time Status Admin Acetaminophen 650 MG Q6PRN PRN 06/16 2045 AC PO Citalopram 10 MG DAILY 06/17 1000 AC 06/18 Hydrobromide PO 0902 Docusate Sodium 100 MG DAILY 06/17 1000 AC 06/18 PO 0901 Ergocalciferol 50,000 IU QTUES 06/17 0700 AC 06/17 PO 08/05 0701 0539 Heparin Sodium 5,000 UNIT Q8 06/16 2200 AC 06/18 (Porcine) SC 0503 Hydrochlorothiazide 25 MG DAILY 06/17 1000 AC 06/18 PO 0901 Hydromorphone HCl 0.2 MG ONCE ONE 06/18 0215 DC 06/18 IV 06/18 0216 0213 Lidocaine 1 PAT Q24H 06/16 2045 AC 06/16 EXT 2225 Metoprolol Tartrate 25 MG BID 06/17 2200 AC 06/18 PO 0902 Morphine Sulfate 2 MG Q12 PRN 06/17 1145 AC 06/17 IV 2355 Morphine Sulfate 2 MG Q6P PRN 06/16 2200 DC 06/17 IV 0519 Oxycodone HCl 5 MG Q4 HRS NEEDED PRN 06/17 0830 AC 06/18 PO 0902 Polyethylene Glycol 17 GM AT BEDTIME 06/16 2200 AC PO Past History Medical History Blood Transfusion Hx: Yes Neurological: NONE EENT: CATARACT SX Cardiovascular: hypertension Respiratory: NONE Gastrointestinal: NONE Hepatic: NONE Renal: NONE Musculoskeletal: FEMUR FRACTURE 1999 Psychiatric: depression Endocrine: NONE Blood Disorders: NONE Cancer(s): NONE 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 Home Who Do You Live With? spouse Services at Home: None Primary Language: Azeri Smoking Status: Never Smoked ETOH Use: heavy use Illicit Drug Use: denies illicit drug use Functional Ability ADLs Independent: dressing, eating, toileting, bathing. Ambulation: walker IADLs Independent: shopping, housework, finances, food prep, telephone, transportation , medication admin. Exam & Diagnostic Data Vital Signs and I&O Vital Signs Date Time Temp Pulse Resp B/P B/P Pulse O2 O2 Flow FiO2 Mean Ox Delivery Rate 06/18 0902 144/58 06/18 0638 97.8 80 20 150/80 96 Room Air 06/18 0600 97.8 80 20 150/80 06/18 0400 97.8 80 20 150/80 06/18 0226 97.8 80 20 150/80 96 Room Air 06/18 0200 97.8 78 20 154/62 / 0000 97.8 78 20 154/62 06/17 2258 97.8 78 20 154/62 92 Room Air 06/17 1740 Room Air Room Air 06/17 1446 98.4 75 20 148/68 91 Room Air Intake & Output 06/18 1600 06/18 0800 06/18 0000 06/17 1600 06/17 0800 06/17 0000 Intake Total 520 480 800 490 240 Output Total 500 300 400 0 Balance 20 180 400 490 240 Intake, IV 40 0 10 Intake, Oral 480 480 800 480 240 Number 0 0 0 0 0 Bowel Movements Output, Urine 500 300 400 0 Patient 157 lb Weight Weight Reported by Patient Measurement Method On physical exam the patient's awake and alert. Examination of the head and neck reveals a normocephalic atraumatic skull. Pupils are equal round reactive light accommodation. Extra movements are intact. Neck is supple no JVD. Range of motion cervical spine is within normal limits and painless. Bilateral upper extremity exam reveals full range of motion of her shoulders elbows and wrists. Bilateral upper chamois is are neurovascular intact with normal sensation and normal motor strength. Examination of lower extremities feels pain with range of motion of the bilateral hips more so on the left. She is pain with compression of the pelvis. Bilateral lower extremity have palpable pedal pulses and normal sensation light touch. The bilateral lower 70 had normal motor strength. CT scan of the pelvis and lumbar spine reveal left-sided inferior and superior pubic rami fractures as well as a left-sided sacral fracture at S1 with no significant displacement and an L5 left transverse process fracture. Assessment/Plan Assessment/Plan 71 year-old female status post fall with a left L5 transverse process fracture of the lateral lumbar spine as well as a left-sided S1 sacral fracture and left pubic rami fractures. Plan will be 18 control and ambulate as tolerated with progressive mobilization as tolerated with physical therapy. Patient should follow-up in the office in 6 weeks for repeat x-rays. Consult Acknowledgment - Thank you for your consult request.
--- NOTE | 2017-06-18 15:47 | Discharge Summary ---
Visit Information Visit Dates Admission Date: 06/16/17 Discharge Date: 06/19/2017 Hospital Course Course Attending Physician: Aida Freeman MD Primary Care Physician: Yasmin GORMAN,Bo Cnorad Consulting Request: Consulting Specialty: Orthopedics Hospital Course: This is a 71-year-old female with past medical history of hypertension, depression came to [place] [facility] with history of pain and difficulty upon walking more on the right side compared to left, Found to have minimally distracted fracture of left L5 transverse process, subtle fracture of right anterior sacrum , mildly comminuted fracture of the left superior ischiopubic Ramus, mildly displaced fracture of the left inferior ischiopubic Ramus. Problem list: 1. Lumbar L5 fracture, Left superior and inferior is ischio pubic ramus fracture, fracture of right anterior sacrum. 2. Hypertension 3. Depression 4. Vit D deficiency 5. Excessive alcohol intake. Hospital course: Possible was admitted to the general medicine floor. Her pain was managed with oxycodone, IV morphine 2 mg twice daily during changing or getting out of the bed. Orthopedic was consulted and recommended conservative management with progressive ambulation and physical therapy and they request that she will follow-up with them 6 week after discharge with repeat x-ray. Patient did not require any alcohol detox during this admission. Patient had low vitamin D level we started on 50,000 weekly for the next 6 week and after that it will be adjusted by her primary care doctor. Also change the patient antidepressant/ antianxiety medication increase dose of citalopram to 20 mg and we added trazodone 12.5 at bedtime. Imaging: EXAMINATION: CT LUMBAR SPINE WITHOUT CONTRAST CLINICAL INFORMATION: Fall few days ago. COMPARISON: Concurrently performed pelvic CT and pelvic radiograph 06/12/2017. TECHNIQUE: Helical non-contrast CT images were obtained through the lumbar spine and 1.25 and 2.5 mm axial reconstructions were reviewed along with sagittal and coronal MPRs. DLP: 480 mGy-cm FINDINGS: There is a mildly displaced comminuted fracture through the left L5 transverse process. No other lumbar spine fracture is seen. There are minimally displaced fractures through the left and right sacral ala. The lumbar vertebral bodies maintain normal heights and alignment. No compression fracture is seen. There is intervertebral disc height loss at L3-L4 and L4-L5. There is multilevel degenerative endplate spurring. Facet arthropathy is present at multiple levels but appears most advanced at L4-L5 and L5-S1. No moderate or severe spinal canal or neural foraminal stenosis is seen. There are atheromatous changes in the abdominal aorta and its branches. The visualized intra-abdominal and pelvic structures are within normal limits. No retroperitoneal hematoma is seen. IMPRESSION: 1. Mildly displaced fracture through the left L5 transverse process. No other lumbar spine fracture is seen. Specifically, there is no compression fracture or traumatic malalignment. 2. Partially visualized fractures through the left and right sacral ala. See concurrently performed pelvic CT for further discussion of pelvic fractures including the left superior and inferior pubic rami and fracture involving the left acetabulum. 3. Multilevel degenerative changes in the lumbar spine without significant spinal canal or neural foraminal stenosis. EXAMINATION: CT PELVIS WITHOUT CONTRAST CLINICAL INFORMATION: Low back and bilateral hip pain status post fall. Evaluate for fracture, malalignment, hip fracture. COMPARISON: None. TECHNIQUE: Helical scanning was performed with submillimeter collimation through the pelvis. Sagittal and coronal multiplanar 2-D reconstructions were obtained. DLP: 859.60 mGy-cm FINDINGS: PELVIS: There is no pelvic mass. OSSEOUS STRUCTURES: There is a minimally distracted fracture of the left L5 transverse process. There is a nondisplaced left sacral fracture. Buckling of the anterior cortex of the right sacrum raises the possibility of a subtle fracture as well. There is a nondisplaced, mildly comminuted fracture of the left proximal superior ischiopubic ramus. There is a comminuted, mildly displaced fracture of the left inferior ischiopubic ramus. There is a sideplate, multiple screws, and a transcervical compression hip screw transfixing the right proximal femur. There is moderate hypertrophic change. No fractures identified. There are mild degenerative changes of the left hip with no fracture identified. IMPRESSION: 1. Minimally distracted fracture of the left L5 transverse process. Nondisplaced left sacral fracture. Possible subtle fracture of the right anterior sacrum. Nondisplaced, mildly comminuted fracture of the left superior ischiopubic ramus. Comminuted, mildly displaced fracture of the left inferior ischiopubic ramus. 2. No evidence of hip fracture. Allergies: Coded Allergies: Penicillins (HIVES 06/13/17) Disposition Summary Disposition Principal Diagnosis: Lumbar L5 fracture, Left superior and inferior is ischio pubic ramus fracture, fracture of right anterior sacrum. Additional Diagnosis: Hypertension Depression Vit D deficiency Excessive alcohol intake. Discharge Disposition: SNF ([place]) Discharge Instructions General Discharge Information Code Status: Full Code Patient's Diet: Heart healthy diet Patient's Activity: As TOrelated Follow-Up Instructions/Appts: Please follow-up with your primary care doctor after discharge. Please follow-up with the orthopedic discharge and obtain x-ray. Medications at Discharge Discharge Medications: Stop taking the following medications: Citalopram Hydrobromide (Citalopram HBr) 10 MG TABLET ORAL DAILY Qty = 30 Continue taking these medications: Metoprolol Succinate (Metoprolol Succinate) 50 MG TAB.ER.24H 1 Tablet ORAL DAILY Qty = 90 Comments: Last Taken: 06/19/17 Time: 8:30 AM Hydrochlorothiazide (Hydrochlorothiazide) 25 MG TABLET 1 Tablet ORAL DAILY Qty = 90 Comments: Last Taken: 06/19/17 Time: 8:30 AM Start taking the following new medications: Ergocalciferol (Vitamin D2) (Vitamin D2) 50,000 UNIT CAPSULE 50,000 International Unit ORAL EVERY FRIDAY Qty = 5 No Refills Comments: Last Taken: 06/17/17 Time: 5:30 AM Lidocaine (Lidoderm) 5 % ADH..PATCH 1 Patch ON SKIN Q24H Qty = 30 No Refills Comments: Last Taken: 06/16/17 Time: 10:30 PM Oxycodone HCl (Oxycodone HCl) 5 MG TABLET 5 Milligram ORAL EVERY 4 HOURS NEEDED as needed for PAIN SCALE 4-6 ( MODERATE) Days = 14 No Refills Comments: Last Taken: 06/19/17 Time: 2:30 PM Docusate Sodium (Docusate Sodium) 100 MG CAPSULE 100 Milligram ORAL DAILY as needed for constipation Days = 30 No Refills Comments: Last Taken: 06/19/17 Time: 8:30 AM Polyethylene Glycol 3350 (Miralax) 17 GRAM/DOSE POWDER 17 Gram ORAL AT BEDTIME as needed for constipation Qty = 30 No Refills Comments: NOT GIVEN IN HOSPITAL Citalopram Hydrobromide (Citalopram HBr) 20 MG TABLET 20 Milligram ORAL DAILY Days = 30 No Refills Comments: Last Taken: 06/19/17 Time: 8:30 AM (RECEIVED 10MG PO) Trazodone HCl (Trazodone HCl) 50 MG TABLET 12.5 Milligram ORAL AT BEDTIME Days = 30 No Refills Comments: NOT GIVEN IN HOSPITAL Acetaminophen (Tylenol Extra Strength) 500 MG TABLET 2 Tablet ORAL EVERY 8 HOURS Days = 10 No Refills Comments: NOT GIVEN IN HOSPITAL Copies To: Yasmin GORMAN,Bo Conrad; Dave GORMAN,Dat Bangura Attending MD Review Statement Documenting Attending: Ascencion Andres MD Other Findings: The patient was seen and discussed with house staff. Agree with plan of care as outlined. Patient to go to STR. Patient notes increased depression and difficulty sleeping. Will add Trazodone 12.5 mg at bedtime and increase Citalopram dose to 20 mg daily. Encourage po intake. Will add tylenol to pain regimen. Consider Celebrex at STR.
[2017-06-18] MEDS ORDERED: LIDODERM1 EACH EXT (15:50)
[2017-06-18] MEDS ORDERED: VITAMIN D250000 UNIT PO (15:50)
--- NOTE | 2017-06-18 15:51 | Patient Discharge Instructions ---
Discharge Instructions General Discharge Information You were seen/treated for: Lumbar L5 fracture, Left superior and inferior is ischio pubic ramus fracture, fracture of right anterior sacrum. Special Instructions: Please follow-up with your primary care doctor after discharge. Please follow-up with the orthopedic discharge and obtain x-ray. Diet Continue normal diet: Yes Activity Activity Self Limited: Yes Acute Coronary Syndrome Inclusion Criteria At DC or during hospital stay patient has or had the following: ACS DIAGNOSIS No Discharge Core Measures Meds if any: Prescribed or Continued at Discharge Meds if any: NOT Prescribed or Continued at Discharge Congestive Heart Failure Inclusion Criteria At DC or during hospital stay patient has or had the following: CHF DIAGNOSIS No Discharge Core Measures Meds if any: Prescribed or Continued at Discharge Meds if any: NOT Prescribed or Continued at Discharge Cerebrovascular accident Inclusion Criteria At DC or during hospital stay patient has or had the following: CVA/TIA Diagnosis No Discharge Core Measures Meds if any: Prescribed or Continued at Discharge Meds if any: NOT Prescribed or Continued at Discharge Venous thromboembolism Inclusion Criteria VTE Diagnosis No VTE Type NONE VTE Confirmed by (Test) NONE Discharge Core Measures - Per Current guidelines, there needs to be overlap - treatment for the first 5 days of Warfarin therapy. - If discharged on Warfarin prior to 5 days of - overlap therapy, the patient will need to be - assessed for post discharge needs including - *Post discharge parental anticoagulation - *Warfarin and/or parental anticoagulation education - *Follow up date to check INR post discharge At least 5 days overlap therapy as Inpatient No Meds if any: Prescribed or Continued at Discharge Note: Overlap Therapy is Warfarin and Anticoagulant Meds if any: NOT Prescribed or Continued at Discharge
[2017-06-18] MEDS ORDERED: PERCOCET 2.5-31 EACH PO ×2 (15:53→16:40)
[2017-06-19 06:42] VITALS: BP 136/60
--- NOTE | 2017-06-19 07:29 | PN- Housestaff ---
Kareen GORMAN,[facility] 06/19/17 0729: Subjective Follow-up For: 1. Lumbar L5 fracture, Left superior and inferior is ischio pubic ramus fracture, fracture of right anterior sacrum. 2. Hypertension 3. Depression 4. Vit D deficiency 5. Excessive alcohol intake Complaints: pain scale (0-10) Subjective: Patient is seen and examined at bedside, she continues to complain of pain in her back and buttocks 3/10 in severity, she mentioned that her pain is controlled with pain meds. She notes that her pain increases when she tries to move in bed. She denies any nausea vomiting, chest pain, fever, chills. She also denies any tingling, weakness or numbness in her lower extremity PT was anxious as she didn't want to be discharged today because of the bad weather and difficult transprtation. Review of Systems Constitutional: Denies: no symptoms. EENTM: Denies: no symptoms. Cardiovascular: Denies: no symptoms. Respiratory: Denies: no symptoms. Gastrointestinal: Reports: constipation. Genitourinary: Denies: no symptoms. Musculoskeletal: Reports: back pain. Skin: Denies: no symptoms. Objective Last 24 Hrs of Vital Signs/I&O Vital Signs Date Time Temp Pulse Resp B/P B/P Pulse O2 O2 Flow FiO2 Mean Ox Delivery Rate 06/19 0832 69 130/64 06/19 0642 98.2 69 20 136/60 99 Room Air 06/18 2154 68 140/60 06/18 2133 98.5 68 20 140/60 92 Room Air 06/18 1501 99.2 74 20 170/64 94 Room Air 06/18 1047 Room Air Room Air 06/18 1040 98.4 64 20 158/60 93 Room Air 06/18 0902 144/58 Intake & Output 06/19 1600 06/19 0800 06/19 0000 Intake Total Output Total 300 Balance -300 Output, Urine 300 Physical Exam General Appearance: Alert, Oriented X3, Cooperative, No Acute Distress Skin: No Rashes, No Breakdown, No Significant Lesion HEENT: Atraumatic, PERRLA, EOMI, Mucous Membr. moist/pink Neck: Supple, No JVD Cardiovascular: Normal S1, Normal S2, No Murmurs Lungs: Clear to Auscultation, Normal Air Movement Abdomen: Normal Bowel Sounds, Soft, No Tenderness Neurological: Normal Speech Extremities: No Clubbing, No Cyanosis, No Edema Vascular: Normal Pulses Assessment/Plan Assessment: 79 years old female with past medical history of hypertension, depression who presented to [facility] was history of pain and difficulty walking which is more noticed on the right side, CT pelvis and lumbar spines show with minimally displaced fracture of L5 transverse process, fracture of the right anterior sacrum ramus,subtle fracture of right anterior sacrum, mildly comminuted fracture of the left superior ischiopubic Ramus, mildly displaced fracture of the left inferior ischiopubic Ramus, this morning the patient was found to have hyper pressure of 190/70 which might be attributed to her pain #L5 fracture, Left superior and inferior is ischio pubic ramus fracture, fracture of right anterior sacrum: -Pain management with morphine, oxycodone, Tylenol, lidocaine patch - ER discussed with Dr. Pinon, fractures are nonsurgical Follow-up with Dr. Etienne in 6 weeks for repeated x-ray of the pelvis as outpatient -Fall precautions -PT eval and STR placement #Depression/history of excessive alcohol use: CIWA score was 0 Continue citalopram 10 mg PO daily. refer to PCP after discharge for anxiety and possible depression #Vitamin D deficiency Patient was restarted on 50,000 vitamin D injection , will need bone scan as outpatient. Patient is full code Heart healthy diet DVT prophylaxis with subcutaneous heparin/Alps Problem List: 1. Pubic ramus fracture 2. Sacral fracture, closed 3. Fracture of transverse process of lumbar vertebra Pain Ratin Pain Location: back and buttocks Pain Goal: Pain 4 or less Pain Plan: per pathway [employer] Labs & Rationales: N/A DVT/Prophylaxis: mechanical, pharmacological Consulting Request: Consulting Specialty: Orthopedics Ascencion Andres MD 06/19/17 9916: Attending Review Statement Attending Statement Attending MD Statement: examined this patient, discuss w/resident/PA/WAITER/[employer]RESS [employer], agreed w/resident/PA/WAITER/[employer]RESS [employer], reviewed EMR data (avail), discussed with nursing, discussed with case mgmt, amended to note Attending Assessment/Plan: The patient was seen and discussed with house staff. Patient notes difficulty sleeping and increased depression. Will increase Citalopram to 20 mg daily and add Trazodone 12.5 mg qhs to regimen and observe. Add Tylenol to pain regimen and consider Celebrex if not working.
[2017-06-19] MEDS ORDERED: MIRALAX119 GM PO (14:16)
[2017-06-19] MEDS ORDERED: DOCUSATE SODIU100 M3 PO (14:16)
[2017-06-19] MEDS ORDERED: OXYCODONE HCL5 M1 PO (14:16)
[2017-06-19] MEDS ORDERED: VITAMIN D250000 UNIT PO (14:19)
[2017-06-19] MEDS ORDERED: TRAZODONE HCL50 M1 PO (14:21)
[2017-06-19] MEDS ORDERED: CITALOPRAM HBR20 MG PO (14:21)
[2017-06-19 14:30] VITALS: BP 130/64
[2017-06-19 14:32] VITALS: BP 150/76
[2017-06-19] MEDS ORDERED: TYLENOL EXTRA500 M2 PO (14:43)
== END 2017-06-19 16:08 | DRG 552 ==
LOC: ERH 13:33 → ERHI 18:35 → 2NB 18:35 → ENRESERV 19:39 → ENTRNSPT 20:20 → 2NB 20:48 → CMPTRNSPT 21:33 → 2NB 06-17 09:46
PROVIDERS: Internal Medicine Endocrinology, Diabetes & Metabolism; Physician Assistant; Student in an Organized Health Care Education/Training Program
DX: S32.059A Unspecified fracture of fifth lumbar vertebra, initial encounter for closed fracture (principal); S32.592A Other specified fracture of left pubis, initial encounter for closed fracture; S32.10XA Unspecified fracture of sacrum, initial encounter for closed fracture; F32.9 Major depressive disorder, single episode, unspecified; W19.XXXA Unspecified fall, initial encounter; Y92.009 Unspecified place in unspecified non-institutional (private) residence as the place of occurrence of the external cause; E55.9 Vitamin D deficiency, unspecified; Z91.81 History of falling; Z72.89 Other problems related to lifestyle; F41.9 Anxiety disorder, unspecified; I10 Essential (primary) hypertension
CPT/HCPCS: 2NBSP; 83921; 36415; 71045; 72170; 73080-LT; 81001; 82436; 93005; 93010; 96374; 97110-GO; 97110-GP; 97116-GP; 97161-GP; 97530-GO; G0480; G8978-GP; G8979-GP; G8980-GP; J1170; J1644

== ENCOUNTER → 2018-02-02 | Day surgery (SDC) | payer OTHER, MEDICARE ==
[~2018-02-02] MED LIST changes: +CITALOPRAM HBR20 MG PO; +DOCUSATE SODIU100 M3 PO; +LIDODERM1 EACH EXT; +MIRALAX119 GM PO; +OXYCODONE HCL5 M1 PO; +PERCOCET 2.5-31 EACH PO; +TRAZODONE HCL50 M1 PO; +TYLENOL EXTRA500 M2 PO; +VITAMIN D250000 UNIT PO
--- NOTE | 2018-02-02 11:20 | NUCLEAR MEDICINE REPORT ---
EXAMINATION: LYMPHOSCINTIGRAPHY CLINICAL INFORMATION: Left breast cancer. COMPARISON: None. TECHNIQUE: A total of 1.2 mCi technetium 99m Lymphoseek was injected in divided doses around the left areola by Chloé Koehler [facility]. Images of the left breast and axilla in the anterior, [place], and left lateral projections were obtained with simultaneous visualization of the body silhouette using a cobalt flood source, with the patient positioned between the flood source and the gamma camera. FINDINGS: 1 sentinal node is visualized in the left axilla. A faint second echelon node is visualized in the left axilla. IMPRESSION: A sentinal node in the left axilla is well visualized. Following this procedure, the patient was transported to the operating room for a probe guided lymph node resection.
--- NOTE | 2018-02-02 12:42 | Operative Report ---
Operative/Inv Procedure Report Surgery Date: 02/02/18 Name of Procedure: Left partial mastectomy and and sentinel lymph node biopsy Pre-Operative Diagnosis: Left breast cancer Post-Operative Diagnosis: Same Estimated Blood Loss: less than 50ml Surgeon/Kettle Fry Cook Operator: Nany Marsh MD Anesthesia: laryngeal mask airway Specimens: Left lumpectomy, cranial margin, caudal margin, medial margin, lateral margin, deep margin, sentinel lymph node 1 Operative/Procedure Note Note: Patient has a known left breast cancer. She is brought to the operating room for a partial mastectomy and sentinel lymph node biopsy. Preoperative lymphoscintigraphy was performed and those films reviewed. She is brought to the operating room and placed under laryngeal mask airway anesthesia. 2 g of Ancef was given in the left breast was prepped and draped in a sterile fashion using ChloraPrep. 3 mL of methylene blue diluted with 2 mL of saline was injected in the retroareolar fashion. The axilla was approached first. Anesthesia of lidocaine Marcaine mix was given and a transverse incision was made in the lower axilla. Clavipectoral fascia was opened and the axilla was explored. A single hot lymph node with counts to 6800 was identified and excised. No other hot, blue, or palpable lymph nodes identified. In 6 is adequate clavipectoral fascia was closed with Vicryl sutures and the skin was closed using a running Biosyn subcutaneous color stitch. The breast was then approached. Palpable lesion was identified at 12:00. Incision was made over the palpable lesion to ensure an adequate anterior margin. Local anesthesia was given incision was made. Dissection started medially below the dermis. A generous lumpectomy was performed and the specimen was removed. This was marked for orientation using margin map and intraoperative x-ray was performed which confirmed the presence of the clip in the specimen. Additional margins were taken in the medial, lateral, deep, cranial, and caudal positions. Hemostasis was adequate. Clips are used to ana the margins of the lumpectomy bed and deep tissue was proximal made using interrupted Vicryl sutures. Skin was closed using a running Biosyn subcutaneous color stitch. Steri-Strips and sterile dressings were applied and patient transferred to the recovery room in satisfactory condition having tolerated procedure well.
== END ==
LOC: STS 04:43
DX: C50.912 Malignant neoplasm of unspecified site of left female breast (principal); Z17.0 Estrogen receptor positive status [ER+]; I10 Essential (primary) hypertension; M19.90 Unspecified osteoarthritis, unspecified site; S32.10XD Unspecified fracture of sacrum, subsequent encounter for fracture with routine healing; Z91.81 History of falling; M25.559 Pain in unspecified hip; M81.0 Age-related osteoporosis without current pathological fracture
CPT/HCPCS: A9520; J0131; J2001; J2250; Q9968